=== PATIENT | female | born 1985 | race Caucasian/White ===

== ENCOUNTER 2017-10-08 16:23 | Emergency (ER) | payer MEDICAID | END 2017-10-08 20:00 | disposition home or self-care (01) | LOC: D.ER 16:23 | DX: F41.9 Anxiety disorder, unspecified (principal); R51 Headache; G40.909 Epilepsy, unspecified, not intractable, without status epilepticus ==

== ENCOUNTER 2019-07-20 08:08 | Emergency (ER) | payer OTHER ==
[~2019-07-20] VITALS: Ht 154.9 cm; Wt 86.4 kg
[2019-07-20 08:15] VITALS: Ht 154.9 cm; Wt 86.4 kg
[2019-07-20] MEDS ORDERED: ZOFRAN ODT4 MG/UDTAB PO (10:04)
[2019-07-20] MEDS ORDERED: LOMOTIL 2.5-0.1 EAC1 PO (10:04)
[2019-07-20 10:42] VITALS: BP 120/80
== END 2019-07-20 10:43 | disposition home or self-care (01) ==
LOC: D.ER 08:08
DX: R11.2 Nausea with vomiting, unspecified (principal); R50.9 Fever, unspecified; R19.7 Diarrhea, unspecified